=== PATIENT | female | born 1975 | race Caucasian/White ===

== ENCOUNTER 2022-05-20 19:52 | Emergency (ER) | payer OTHER, SELFPAY ==
--- NOTE | 2022-05-20 19:53 | ED.EYEPROB ---
HPI - Eye Problem General Chief complaint: Eye Problems Stated complaint: eye injury Time Seen by Provider: 05/20/22 19:58 Source: patient and RN notes reviewed Mode of arrival: ambulatory Limitations: no limitations History of Present Illness HPI Narrative: 46-year-old female presents to the [facility] with right eye pain after getting hit in the eye with a wiffle ball playing pickle ball just prior to arrival. Reports vision is a little blurry but no significant change in vision. No dark spots, halos. No hyphema noted. All 6 levels of gaze noted. No entrapment noted. No orbital tenderness Was wearing contact lenses at the time of incident MD chief complaint: eye injury Onset (ago): minute(s) Related Data Patient tetanus UTD: Yes Allergies Allergy/AdvReac Type Severity Reaction Status Date / Time No Known Allergies Allergy Verified 05/20/22 19:58 Review of Systems Review of Systems: All systems reviewed & are unremarkable except as noted in HPI and below Constitutional: Constitutional: Reports no additional constitutional complaints, Denies chills and Denies fever(s) Eyes: Eyes: Reports as per HPI, Denies blind spots, Denies blurry vision, Denies exophthalmos, Denies change in vision, Denies decreased night vision, Denies eye discharge, Denies irritation, Denies loss of peripheral vision, Denies loss of vision, Denies other visual disturbances, Reports eye pain, Reports requires corrective lenses, Denies photophobia, Denies spots in vision and Denies tunnel vision ENT: Reports system reviewed and no additional complaints, except as documented Cardiovascular: Cardiovascular: Reports no additional cardiovascular complaints Respiratory: Respiratory: Reports no additional respiratory complaints Gastrointestinal: Gastrointestinal: Reports no additional gastrointestinal complaints Musculoskeletal: Musculoskeletal: Reports no additional musculoskeletal complaints Integumentary/Breasts: Skin/Breast: Reports system reviewed and no additional complaints, except as docu Neurologic: Reports system reviewed and no additional complaints, except as documented Psychiatric: Psychiatric: Reports no additional psychiatric complaints Allergic/Immunologic: Allergic/Immunologic: Reports no additional allergic/immunologic complaints [facility] Past Medical History Medical History (Updated 05/20/22 @ 20:18 by Thi Rosario APRN) No significant medical problems Surgical History Surgical History (Updated 05/20/22 @ 20:02 by Thi Rosario APRN) History of partial hysterectomy Social History Social History (Updated 05/20/22 @ 20:16 by Thi Rosario APRN) Living arrangements: with family Gender identity (if verbalized by the patient): Female Comments At the time of my signature, I reviewed and agree with the nursing past medical, surgical, social, and family history. There is no relevant family history pertinent to the patient complaint. Exam Const: General: healthy appearing, no acute distress and alert Nutritional Appearance: well nourished Orientation/consciousness: patient oriented x3 Limitations: no limitations HENMT: Head: normal to inspection Ears: external ears normal General nose exam: Normal external nose present and Normal nares present Face and sinus: normal facial exam and sinuses nontender Mouth: Yes Normal oral and palatal mucosa present, Yes lip normal and Yes moist mucous membranes Teeth and gingiva: dentition normal Throat: posterior oropharynx normal Eyes: General: appearance normal, both eyes and all related structures Visual Kincaid: normal visual kincaid by confrontation Alignment and Position: alignment normal and position normal Periorbital: periorbital findings normal (No tenderness periorbital) Eyelids: eyelids normal Conjunctivae: conjunctivae normal Sclera: scleral abnormality right hemorrhage; without scleral injection Cornea: corneas abnormal on the right fluorescein used, abrasion
[2022-05-20 20:03] VITALS: BP 119/80; PULSE 68; RESP 16; TEMP 36.7; O2SAT 100
== END 2022-05-20 20:13 | disposition home or self-care (01) ==
PROVIDERS: Emergency Provider Nurse Practitioner
DX: S05.01XA Injury of conjunctiva and corneal abrasion without foreign body, right eye, initial encounter (principal); W21.09XA Struck by other hit or thrown ball, initial encounter; Y93.89 Activity, other specified; H11.31 Conjunctival hemorrhage, right eye
CPT/HCPCS: 99213; A9270; G0463